=== PATIENT | male | born 1940 | race Caucasian/White ===

== ENCOUNTER 2018-03-04 12:18 | Emergency (ER) | payer MEDICARE, BC ==
[2018-03-04] MEDS ORDERED: Lidocaine 1% 20 ML MDV INJECT ONE (14:13)
--- NOTE | 2018-03-04 14:14 | EDM.PDOC ---
ED HPI GENERAL MEDICAL PROBLEM - General Chief Complaint: Laceration Stated Complaint: TWO FISH HOOKS TOP OF LEFT HAND Time Seen by Provider: 03/04/18 14:13 Source of Information: Reports: Patient History Limitations: Reports: No Limitations - History of Present Illness INITIAL COMMENTS - FREE TEXT/NARRATIVE: pT HAS 2 HOOKS OF A TREBLE HOOK IN THE TOP OF THE LEFT HAND. Onset: Today Duration: Hour(s): Location: Reports: Upper Extremity, Left Associated Symptoms: Reports: No Other Symptoms Left Hand Pain Score (Numeric/FACES): 4 - Related Data Allergies Allergy/AdvReac Type Severity Reaction Status Date / Time No Known Allergies Allergy Verified 03/04/18 14:09 Home Meds: Home Meds DULoxetine HCl [Duloxetine HCl] 03/04/18 [History] Losartan [Cozaar] 03/04/18 [History] ED ROS GENERAL - Review of Systems Review Of Systems: See Below Constitutional: Reports: No Symptoms HEENT: Reports: No Symptoms Respiratory: Reports: No Symptoms Cardiovascular: Reports: No Symptoms Endocrine: Reports: No Symptoms GI/Abdominal: Reports: No Symptoms : Reports: No Symptoms Skin: Reports: Other ( FISH HOOK IN THE LEFT HAND ON THE DORSUM) ED EXAM, SKIN/RASH Exam: See Below Text/Narrative:: PT ARRIVED WITH 2 BRADS OF A TREBLE HOK IN THE DORSUM OF THE LEFT HAND. hE IS CURRENT WITH HIS TETANUS. Exam Limited By: No Limitations General Appearance: Alert, Anxious Ears: Normal TMs Nose: Normal Inspection Throat/Mouth: Normal Inspection Head: Atraumatic Neck: Normal Inspection Respiratory/Chest: No Respiratory Distress Extremities: Other (pT HAS 2 PARTS OF THE TREBLE HOOK IN THE DORSUM OF THE LEFT HAND. ) Course - Vital Signs Last Recorded V/S: Last Vital Signs Temp 36.7 C 03/04/18 14:19 Pulse 82 03/04/18 14:19 Resp 18 03/04/18 14:19 BP 142/72 H 03/04/18 14:19 Pulse Ox 97 03/04/18 14:19 - Orders/Labs/Meds Meds: Medications Discontinued Medications Generic Name Dose Route Start Last Admin Trade Name Freq PRN Reason Stop Dose Admin Bacitracin 1 dose 03/04/18 14:29 03/04/18 14:39 Bacitracin Oint 1 Gm TOP 03/04/18 14:30 1 dose ONETIME ONE Administration Lidocaine HCl 20 ml 03/04/18 14:13 03/04/18 14:32 Xylocaine 1% INJECT 03/04/18 14:14 20 ml ONETIME ONE Administration - Re-Assessments/Exams Free Text/Narrative Re-Assessment/Exam: 03/04/18 14:28 tHE AREA WAS CLEANSED AND INFILTRATED WITH LIDOCAINE THE HOOK EACH WAS PUSHED THROUGH AND THE TREBLE CUT OFF. THE HOOKS WERE THAN REMOVED WITHOUT DUIFFICULTY. Departure - Departure Time of Disposition: 14:42 Disposition: Home, Self-Care 01 Condition: Fair Clinical Impression: Fish hook in forearm - Discharge Information Instructions: Puncture Wound, [id number] Referrals: Noman Ryder NP [Primary Care Provider] - Forms: ED Department Discharge Care Plan Goals: SOAK HAND IF PERSISTENT TENDERNESS. RTC IF PROBLEMS.
[2018-03-04] MEDS ORDERED: Bacitracin Oint 1 GM U/D Packet TOP ONE (14:29)
== END 2018-03-04 14:48 | disposition home or self-care (01) ==
LOC: JP.ED 12:18
DX: S60.552A Superficial foreign body of left hand, initial encounter (principal); W45.8XXA Other foreign body or object entering through skin, initial encounter
CPT/HCPCS: 99283

== ENCOUNTER 2019-04-11 19:20 | Emergency (ER) | payer MEDICARE, BC ==
[2019-04-11] MEDS ORDERED: HYDROmorphone 1 MG/ML Syringe IVPUSH ONE ×2 (20:34→23:04)
--- NOTE | 2019-04-11 22:35 | CRLCR ---
TECHNIQUE: PA chest and 5 views of the ribs. INDICATION: Trauma, fall. FINDINGS: Elevated left hemidiaphragm with linear atelectasis in the left lung base. Lungs are otherwise clear. No pneumothorax. Left-sided AICD. No acute rib fractures identified. Impression: No acute findings. Dictated by Wu Holder MD @ 04/11/2019 10:34:07 PM Dictated by: Wu Holder MD @ 04/11/2019 22:34:09 (Electronically Signed)
--- NOTE | 2019-04-11 22:51 | EDM.PDOC ---
ED HPI GENERAL MEDICAL PROBLEM - General Chief Complaint: Respiratory Problem Stated Complaint: MEDICAL VIA [place]TH Time Seen by Provider: 04/11/19 19:57 Source of Information: Reports: Patient History Limitations: Reports: No Limitations - History of Present Illness INITIAL COMMENTS - FREE TEXT/NARRATIVE: This patient said that he fell on top of the sprinkler in his yard. He complains of severe pain in the right mid axillary line and then the back and kind of the right posterior axillary line. Said it hurts to breathe. No other injury right posterior ribs Pain Score (Numeric/FACES): 4 - Related Data Allergies Allergy/AdvReac Type Severity Reaction Status Date / Time No Known Allergies Allergy Verified 03/04/18 14:09 Home Meds: Home Meds Albuterol [Ventolin HFA] 04/11/19 [History] Aspirin [[place] Aspirin EC] 81 mg PO 04/11/19 [History] Escitalopram [Lexapro] 10 mg PO DAILY 04/11/19 [History] Fluticasone Propionate [Flonase] 04/11/19 [History] Glucosamine [Glucosamine Sulfate] 500 mg PO 04/11/19 [History] Losartan Potassium 04/11/19 [History] buPROPion [Wellbutrin SR] 04/11/19 [History] Past Medical History HEENT History: Reports: Hard of Hearing Cardiovascular History: Reports: Arrhythmia, High Cholesterol, Hypertension, Pacemaker Respiratory History: Reports: Asthma Genitourinary History: Reports: Renal Calculus Psychiatric History: Reports: Depression Oncologic (Cancer) History: Reports: Bladder Dermatologic History: Reports: Other (See Below) Other Dermatologic History: excessive sweating - Past Surgical History HEENT Surgical History: Reports: Other (See Below) Other HEENT Surgeries/Procedures: cochlear implants bilat Cardiovascular Surgical History: Reports: Pacer GI Surgical History: Reports: Appendectomy Male Surgical History: Reports: Lithotripsy (ESWL) Social & Family History - Tobacco Use Smoking Status *Q: Former Smoker Used Tobacco, but Quit: Yes Month/Year Tobacco Last Used: 2017 - Caffeine Use Caffeine Use: Reports: Coffee, Soda - Alcohol Use Days Per Week of Alcohol Use: 7 Number of Drinks Per Day: 2 Total Drinks Per Week: 14 - Recreational Drug Use Recreational Drug Use: No ED ROS GENERAL - Review of Systems Review Of Systems: ROS reveals no pertinent complaints other than HPI. ED EXAM, GENERAL - Physical Exam Exam: See Below Exam Limited By: No Limitations General Appearance: Alert, Moderate Distress, Obese Eye Exam: Bilateral Eye: Normal Inspection Throat/Mouth: Normal Inspection Neck: Normal Inspection, Supple, Full Range of Motion Respiratory/Chest: Lungs Clear, Other Cardiovascular: Regular Rate, Rhythm (Severe tenderness to right sided chest in the mid axillary and posterior axillary lines at about level of the nipple and below.) Extremities: Normal Inspection Neurological: Alert, Oriented Skin Exam: Warm, Dry, Intact Course - Vital Signs Last Recorded V/S: Last Vital Signs Temp 36.2 C 04/11/19 19:26 Pulse 67 04/11/19 20:55 Resp 20 04/11/19 20:55 BP 188/91 H 04/11/19 20:55 Pulse Ox 94 L 04/11/19 20:55 - Orders/Labs/Meds Meds: Medications Discontinued Medications Generic Name Dose Route Start Last Admin Trade Name Freq PRN Reason Stop Dose Admin Hydromorphone HCl 1 mg 04/11/19 20:34 04/11/19 20:44 Dilaudid IVPUSH 04/11/19 20:35 1 mg ONETIME ONE Administration - Radiology Interpretation Free Text/Narrative:: Right ribs and chest x-ray showed no evidence of fracture - Re-Assessments/Exams Free Text/Narrative Re-Assessment/Exam: 04/11/19 22:47 This patient received 2 doses of IM Dilaudid for pain control Departure - Departure Time of Disposition: 22:47 Disposition: Home, Self-Care 01 Condition: Fair Clinical Impression: Bruised ribs - Discharge Information Referrals: PCP,None [Primary Care Provider] - Additional Instructions: For pain use Narco 5/325, #15 tablets, one or 2 every 4-6 hours as needed for pain. This medication can cause sedation that could lead to falls so use with caution. It can also impair driving or operating machinery and can be addictive if taken over long. Bruised or even cracked ribs can take a week or 2 before the pain begins to ease. No rib fractures were seen but sometimes a cracked rib just doesn't show up on an x-ray. See your doctor as needed
== END 2019-04-11 23:44 | disposition home or self-care (01) ==
LOC: JP.ED 19:20
DX: S20.211A Contusion of right front wall of thorax, initial encounter (principal); I10 Essential (primary) hypertension; J45.909 Unspecified asthma, uncomplicated; Z95.0 Presence of cardiac pacemaker; Z79.82 Long term (current) use of aspirin; Z79.899 Other long term (current) drug therapy; Z90.49 Acquired absence of other specified parts of digestive tract; Z87.891 Personal history of nicotine dependence; W01.0XXA Fall on same level from slipping, tripping and stumbling without subsequent striking against object, initial encounter
CPT/HCPCS: 71101; 96374; 96376; 99283; J1170

== ENCOUNTER 2021-07-19 19:49 | Emergency (ER) | payer MEDICARE, BC ==
--- NOTE | 2021-07-19 20:00 | EDM.PDOC ---
<Susana Allen - Last Filed: 07/20/21 06:57> ED HPI GENERAL MEDICAL PROBLEM - General Chief Complaint: General Stated Complaint: MEDICAL VIA NORTH Time Seen by Provider: 07/19/21 19:59 Source of Information: Reports: Patient, Family History Limitations: Reports: No Limitations - History of Present Illness INITIAL COMMENTS - FREE TEXT/NARRATIVE: pt arrived because of increased weakness, difficulty walking and poor intake. He had a cysto on Saturday in . He has had difficulty voiding and has some burnin when he voids. He is going often. Onset: Other (Pt started symptoms yesterday. ) Duration: Hour(s): Location: Reports: Abdomen, Generalized Associated Symptoms: Reports: Fever/Chills, Loss of Appetite, Weakness - Related Data Allergies Allergy/AdvReac Type Severity Reaction Status Date / Time No Known Allergies Allergy Verified 07/19/21 20:02 Home Meds: Home Meds Aspirin [[place] Aspirin EC] 81 mg PO DAILY 04/11/19 [History] Glucosamine [Glucosamine Sulfate] 500 mg PO DAILY 04/11/19 [History] Losartan Potassium 1 tab PO DAILY 04/11/19 [History] ARIPiprazole [Abilify] 2 mg PO DAILY 07/19/21 [History] Fluocinonide [Lidex 0.05% Top Soln] 1 dose TOP BID 07/19/21 [History] Ketoconazole [Nizoral 2% Crm] 1 dose TOP ASDIRECTED 07/19/21 [History] Multivit with Iron,Minerals [Complete Senior] 1 tab PO DAILY 07/19/21 [History] atorvaSTATin [Lipitor] 1 tab PO ASDIRECTED 07/19/21 [History] Past Medical History HEENT History: Reports: Hard of Hearing Cardiovascular History: Reports: Arrhythmia, High Cholesterol, Hypertension, Pacemaker Respiratory History: Reports: Asthma Genitourinary History: Reports: Renal Calculus Psychiatric History: Reports: Depression Oncologic (Cancer) History: Reports: Bladder Dermatologic History: Reports: Other (See Below) Other Dermatologic History: excessive sweating - Past Surgical History HEENT Surgical History: Reports: Other (See Below) Other HEENT Surgeries/Procedures: cochlear implants bilat Cardiovascular Surgical History: Reports: Pacer GI Surgical History: Reports: Appendectomy Male Surgical History: Reports: Lithotripsy (ESWL) Social & Family History - Caffeine Use Caffeine Use: Reports: Coffee, Soda ED ROS GENERAL - Review of Systems Review Of Systems: See Below Constitutional: Reports: Fever, Chills, Malaise, Weakness HEENT: Reports: No Symptoms Respiratory: Reports: No Symptoms Cardiovascular: Reports: No Symptoms Endocrine: Reports: No Symptoms Musculoskeletal: Reports: Other (pt is having alot of difficulty voiding. He did arrive with a fever of 101) Skin: Reports: No Symptoms ED EXAM, GENERAL - Physical Exam Exam: See Below Free Text/Narrative:: Pt arrived with increased weakness difficulty walking. He was having difficulty voiding and going frequently Exam Limited By: No Limitations General Appearance: Alert, Anxious, Mild Distress, Other (pupils are equal and reactive. ) Ears: Normal TMs Nose: Normal Inspection Throat/Mouth: Normal Inspection Head: Atraumatic Neck: Normal Inspection Respiratory/Chest: No Respiratory Distress Cardiovascular: Regular Rate, Rhythm, Tachycardia, Other (pt had a fever of 101) GI/Abdominal: Soft, Non-Tender (Male) Exam: Other (pt was cathed for a urine. ) Rectal (Males) Exam: Deferred Back Exam: Normal Inspection Extremities: Normal Inspection Neurological: Alert, Oriented, Normal Cognition Psychiatric: Anxious Course - Re-Assessments/Exams Free Text/Narrative Re-Assessment/Exam: 07/20/21 07:08 pt was found to have a very infected urine. He was given rochen 2 gm iv. He had a urine cullture that was set up. HHis lactic acid was normal. He had a temp of 101 Pt was bolused with 2 liters of fluid and he did start to put out some urine. Kimberly [facility] was called for a bed and no beds were available. Pt was kept in ER durin the nite. 07/20/21 07:13 pt voided very little during the nite. will bolus with another liter of fluid he did have a bladder scan and he only had 21 cc in the bladder. Departure - Departure Disposition: Home, Self-Care 01 Clinical Impression: UTI, Urinary tract infectious disease - Discharge Information Instructions: Urinary Tract Infection, Adult, [id number] Referrals: Estephania Osman DO [Primary Care Provider] - Forms: ED Department Discharge Care Plan Goals: Continue your regular medications and take antibiotic 3 times a day until gone. Call or return to the emergency room at any time if you are worsening such as recurrence of fever, weakness, or vomiting the medication. Otherwise consider rechecking in 3 or 4 days if not improving satisfactorily. You will be contacted if your urine culture results warrant a change of medication. <Angus Madsen - Last Filed: 07/20/21 09:07> Course - Vital Signs Last Recorded V/S: Last Vital Signs Temp 100.5 F 07/19/21 19:54 Pulse 69 07/20/21 06:23 Resp 22 H 07/20/21 06:23 BP 110/40 L 07/20/21 06:23 Pulse Ox 92 L 07/20/21 06:23 - Orders/Labs/Meds Orders: Active Orders 24 hr Category Date Time Status CULTURE URINE [RM] Stat Lab 07/19/21 21:04 Received Saline Lock Insert [OM.PC] Routine Oth 07/19/21 21:04 Ordered Labs: Laboratory Tests 07/19/21 07/19/21 07/19/21 Range/Units 20:16 20:16 20:16 WBC 9.6 (4.5-11.0) K/uL RBC 4.23 L (4.30-5.90) M/uL Hgb 13.9 (12.0-15.0) g/dL Hct 40.1 (40.0-54.0) % MCV 95 (80-98) fL MCH 33 H (27-31) pg MCHC 35 (32-36) % Plt Count 160 (150-400) K/uL Neut % (Auto) 81.6 H (36-66) % Lymph % (Auto) 9.9 L (24-44) % Lares % (Auto) 8.4 H (2-6) % Eos % (Auto) 0.0 L (2-4) % Baso % (Auto) 0.1 (0-1) % Sodium 142 (140-148) mmol/L Potassium 3.6 (3.6-5.2) mmol/L Chloride 104 (100-108) mmol/L Carbon Dioxide 29 (21-32) mmol/L Anion Gap 9.2 (5.0-14.0) mmol/L BUN 21 H (7-18) mg/dL Creatinine 0.9 (0.8-1.3) mg/dL Est Cr Clr Drug Dosing 62.28 mL/min Estimated GFR (MDRD) > 60 (>60) Glucose 115 H (74-106) mg/dL Lactic Acid 0.9 (0.4-2.0) mmol/L Calcium 8.4 L (8.5-10.1) mg/dL Total Bilirubin 1.3 H (0.2-1.0) mg/dL AST 20 (15-37) U/L ALT 25 (12-78) U/L Alkaline Phosphatase 75 (46-116) U/L Total Protein 6.6 (6.4-8.2) g/dL Albumin 3.8 (3.4-5.0) g/dL Globulin 2.8 (2.3-3.5) g/dL Albumin/Globulin Ratio 1.4 (1.2-2.2) Urine Color (YELLOW) Urine Appearance (CLEAR) Urine pH (5.0-8.0) Ur Specific [place] (1.008-1.030) Urine Protein (NEGATIVE) mg/dL Urine Glucose (UA) (NEGATIVE) mg/dL Urine Ketones (NEGATIVE) mg/dL Urine Occult Blood (NEGATIVE) Urine Nitrite (NEGATIVE) Urine Bilirubin (NEGATIVE) Urine Urobilinogen (0.2-1.0) EU/dL Ur Leukocyte Esterase (NEGATIVE) Urine RBC (0-5) Urine WBC (0-5) Ur Epithelial Cells Amorphous Sediment Urine Bacteria Urine Mucus 07/19/21 Range/Units 20:57 WBC (4.5-11.0) K/uL RBC (4.30-5.90) M/uL Hgb (12.0-15.0) g/dL Hct (40.0-54.0) % MCV (80-98) fL MCH (27-31) pg MCHC (32-36) % Plt Count (150-400) K/uL Neut % (Auto) (36-66) % Lymph % (Auto) (24-44) % Lares % (Auto) (2-6) % Eos % (Auto) (2-4) % Baso % (Auto) (0-1) % Sodium (140-148) mmol/L Potassium (3.6-5.2) mmol/L Chloride (100-108) mmol/L Carbon Dioxide (21-32) mmol/L Anion Gap (5.0-14.0) mmol/L BUN (7-18) mg/dL Creatinine (0.8-1.3) mg/dL Est Cr Clr Drug Dosing mL/min Estimated GFR (MDRD) (>60) Glucose (74-106) mg/dL Lactic Acid (0.4-2.0) mmol/L Calcium (8.5-10.1) mg/dL Total Bilirubin (0.2-1.0) mg/dL AST (15-37) U/L ALT (12-78) U/L Alkaline Phosphatase (46-116) U/L Total Protein (6.4-8.2) g/dL Albumin (3.4-5.0) g/dL Globulin (2.3-3.5) g/dL Albumin/Globulin Ratio (1.2-2.2) Urine Color Yellow (YELLOW) Urine Appearance Cloudy A (CLEAR) Urine pH 5.5 (5.0-8.0) Ur Specific [place] >= 1.030 (1.008-1.030) Urine Protein 100 H (NEGATIVE) mg/dL Urine Glucose (UA) Negative (NEGATIVE) mg/dL Urine Ketones 15 H (NEGATIVE) mg/dL Urine Occult Blood Moderate H (NEGATIVE) Urine Nitrite Positive H (NEGATIVE) Urine Bilirubin Small H (NEGATIVE) Urine Urobilinogen 1.0 (0.2-1.0) EU/dL Ur Leukocyte Esterase Small H (NEGATIVE) Urine RBC 5-10 H (0-5) Urine WBC 50-75 H (0-5) Ur Epithelial Cells Rare Amorphous Sediment Not seen Urine Bacteria Many Urine Mucus Rare Meds: Medications Discontinued Medications Generic Name Dose Route Start Last Admin Trade Name Elliottq PRN Reason Stop Dose Admin Acetaminophen Confirm 07/19/21 23:41 07/20/21 07:09 Acetaminophen 500 Mg Tab Administered 07/19/21 23:42 Not Given Dose 1,000 mg .ROUTE .STK-MED ONE Acetaminophen 1,000 mg 07/19/21 23:58 07/19/21 23:42 Acetaminophen 500 Mg Tab PO 07/19/21 23:59 1,000 mg ONETIME ONE Administration Ciprofloxacin 500 mg 07/20/21 01:50 07/20/21 01:51 Ciprofloxacin 500 Mg Tab PO 07/20/21 01:51 500 mg ONETIME ONE Administration Ciprofloxacin 500 mg 07/20/21 09:00 Ciprofloxacin 500 Mg Tab PO 07/20/21 09:01 ONETIME ONE Sodium Chloride 1,000 mls @ 999 mls/hr 07/19/21 21:00 07/19/21 21:15 Normal Saline IV 999 mls/hr ASDIRECTED MARCK Administration Ceftriaxone Sodium 2 gm/ 50 mls @ 100 mls/hr 07/19/21 21:03 07/19/21 21:15 Sodium Chloride IV 07/19/21 21:32 100 mls/hr ONETIME ONE Administration Sodium Chloride 1,000 mls @ 500 mls/hr 07/19/21 23:15 07/19/21 23:35 Normal Saline IV 500 mls/hr ASDIRECTED MARCK Administration Sodium Chloride 1,000 mls @ 150 mls/hr 07/20/21 02:00 07/20/21 01:50 Normal Saline IV 150 mls/hr ASDIRECTED MARCK Administration Sodium Chloride 1,000 mls @ 999 mls/hr 07/20/21 07:15 Normal Saline IV ASDIRECTED MARCK Lidocaine HCl Confirm 07/19/21 20:41 Lidocaine 2% Jelly 10 Ml Urojet Administered 07/19/21 20:42 Dose 10 ml .ROUTE .ST-MED ONE Lidocaine HCl 10 ml 07/19/21 21:05 07/19/21 20:55 Lidocaine 2% Jelly 10 Ml Urojet MUCMEM 07/19/21 21:06 10 ml ONETIME ONE Administration Sodium Chloride 10 ml 07/19/21 21:04 07/19/21 21:06 Sodium Chloride 0.9% 10 Ml Syringe FLUSH 10 ml ASDIRECTED PRN Administration Keep Vein Open - Re-Assessments/Exams Free Text/Narrative Re-Assessment/Exam: 07/20/21 07:57 Patient care turned over from Dr. Allen pending response to fluids and antibiotics. Patient feels back to baseline, was ambulated in the rdz and was stable. He will be discharged on cephalexin, 500 mg 3 times a day 20 total. Continue his other regular medications, and return if worsening. Departure - Departure Time of Disposition: 08:44 Sepsis Event Note (ED) - Focused Exam Vital Signs: Vital Signs Pulse Resp BP Pulse Ox 07/20/21 06:23 69 22 H 110/40 L 92 L 07/20/21 06:20 68 22 H 126/44 L 94 L 07/20/21 05:50 72 21 H 126/43 L 93 L 07/20/21 05:20 62 22 H 123/47 L 93 L 07/20/21 04:50 65 24 H 123/45 L 93 L 07/20/21 04:20 67 21 H 124/43 L 93 L 07/20/21 03:50 62 21 H 122/44 L 91 L 07/20/21 03:20 66 24 H 119/45 L 91 L 07/20/21 02:50 71 24 H 130/50 L 90 L 07/20/21 01:53 77 24 H 125/41 L 93 L 07/20/21 01:24 77 26 H 121/40 L 93 L 07/20/21 00:54 88 21 H 135/50 L 07/20/21 00:24 91 24 H 130/50 L 91 L 07/19/21 23:53 87 24 H 137/47 L 92 L 07/19/21 23:23 86 92 H 136/54 L 24 L 07/19/21 22:53 87 16 134/47 L 93 L 07/19/21 22:50 80 24 H 139/49 L 94 L 07/19/21 21:24 85 25 H 135/56 L 95
[2021-07-19] MEDS ORDERED: Lidocaine 2% Jelly 10 ML Urojet ONE (20:41)
[2021-07-19] MEDS ORDERED: Sodium Chloride 0.9% 1,000 ML IV SCH ×2 (21:00→23:15)
[2021-07-19] MEDS ORDERED: cefTRIAXone 2 GM in Sodium Chloride 0.9% 50 ML IV ONE (21:03)
[2021-07-19] MEDS ORDERED: Sodium Chloride 0.9% 10 ML Syringe FLUSH PRN (21:04)
[2021-07-19] MEDS ORDERED: Lidocaine 2% Jelly 10 ML Urojet MUCMEM ONE (21:05)
[2021-07-19] MEDS ORDERED: Acetaminophen 500 MG Tab ONE (23:41)
[2021-07-19] MEDS ORDERED: Acetaminophen 500 MG Tab PO ONE (23:58)
[2021-07-20] MEDS ORDERED: Ciprofloxacin 500 MG Tab PO ONE ×2 (01:50→09:00)
[2021-07-20] MEDS ORDERED: Sodium Chloride 0.9% 1,000 ML IV SCH ×2 (02:00→07:15)
== END 2021-07-20 08:37 | disposition home or self-care (01) ==
LOC: JP.ED 19:49
DX: N39.0 Urinary tract infection, site not specified (principal); E78.00 Pure hypercholesterolemia, unspecified; I10 Essential (primary) hypertension; Z95.0 Presence of cardiac pacemaker; Z79.82 Long term (current) use of aspirin; Z79.899 Other long term (current) drug therapy
CPT/HCPCS: 36415; 80053; 81001; 83605; 85025; 87086; 87088; 87186; 96365; 99285; A9270; J0696; J7030

== ENCOUNTER 2023-12-23 10:04 | Emergency (ER) | payer MEDICARE, BC | END 2023-12-23 11:51 | disposition home or self-care (01) | LOC: JP.ED 10:04 | DX: B02.9 Zoster without complications (principal); I10 Essential (primary) hypertension; E78.00 Pure hypercholesterolemia, unspecified; Z90.49 Acquired absence of other specified parts of digestive tract; Z79.82 Long term (current) use of aspirin; Z79.899 Other long term (current) drug therapy | CPT/HCPCS: 99283 ==